=== PATIENT | female | born 1960 | race Caucasian/White ===

== ENCOUNTER 2019-07-01 19:20 | Emergency (ER) | payer OTHER ==
[2019-07-01 19:28] VITALS: BP 152/76; PULSE 64; TEMP 98; BMI 21.2
--- NOTE | 2019-07-01 20:50 | PDOC ---
Documentation entered by Darling Del Valle SCRIBE, acting as scribe for Be Villa MD. Be Villa MD: This documentation has been prepared by the Eligio ingram Aiswarya, SCRIBE, under my direction and personally reviewed by me in its entirety. I confirm that the documentation accurately reflects all work, treatment, procedures, and medical decision making performed by me. History of Present Illness - General Chief Complaint: Injury Stated Complaint: LT ANKLE PAIN Time Seen by Provider: 07/01/19 19:25 History Source: Patient Exam Limitations: No Limitations - History of Present Illness Initial Comments: 07/01/19 20:04 Assessment and plan: This is a 59-year-old female who twisted her ankle well ambulating. Patient comes in complaining of pain over the lateral ankle. Patient had x-ray was negative for any acute pathology of the ankle or the foot Patient discharged and had her own crutches and a walking boot so did not require any additional support. 07/01/19 20:12 The patient is a 76 year old female, with a significant PMH of depression, who presents to the emergency department for evaluation of left ankle injury that occurred today. The patient states she rolled her left ankle while walking down a hill. She endorses tenderness on palpation that is exacerbated with movement but able to bear weight. Patient denies hitting her head or LOC. Denies any numbness or tingling. Denies any other neurological deficit. PAST MEDICAL HISTORY: no significant history PAST SURGICAL HISTORY: no significant history FAMILY HISTORY: no pertinent history SOCIAL HISTORY: Pt lives with family and is employed. MEDICATIONS: reviewed ALLERGIES: As per nursing notes Adult ROS General: No fevers or chills, no weakness, no weight loss HEENT: No change in vision. No sore throat,. No ear pain CardioVascular: No chest pain or shortness of breath Respiratory:No cough, or wheezing. Gastrointestinal: no nausea, vomiting, diarrhea or constipation, No rectal bleeding Genitourinary: No dysuria, hematuria, or frequency Musculoskeletal: +left ankle injury. Neurologic: No headache, vertigo, dizziness or loss of consciousness Psychiatric: nor depression Skin: No rashes or easy bruising Endocrine: no increased thirst or abnormal weight change Allergic: no skin or latex allergy All other systems reviewed and normal Basic PE GENERAL: The patient is awake, alert, and fully oriented, in no acute distress. HEAD: Normal with no signs of trauma. EYES: Pupils equal, round and reactive to light, extraocular movements intact, sclera anicteric, conjunctiva clear. EXTREMITIES: +Left ankle tenderness and swelling on palpation to the lateral malleolus with tenderness, swelling and ecchymosis of the lateral aspect of the foot. Neurovascular intact. NEUROLOGICAL: Normal speech, normal gait. PSYCH: Normal mood, normal affect. SKIN: Warm, Dry, normal turgor, no rashes or lesions noted. Past History - Past Medical History Allergies/Adverse Reactions: Allergies Allergy/AdvReac Type Severity Reaction Status Date / Time Sulfa (Sulfonamide Allergy Verified 11/30/12 13:01 Antibiotics) [Sulfa(Sulfonamide Antibiotics)] Home Medications: Ambulatory Orders Estrogens,Esterified [Menest] 0.3 mg PO BID 11/30/12 Bupropion HCl [Bupropion Xl] 300 mg PO DAILY 06/18/18 Naproxen 500 mg PO BID PRN #14 tablet 06/19/18 COPD: No Psychiatric Problems: Yes - Suicide/Smoking/Psychosocial Hx Smoking Status: No Smoking History: Never smoked Number of Cigarettes Smoked Daily: 0 *Physical Exam - Vital Signs Last Vital Signs Temp Pulse Resp BP Pulse Ox 98 F 64 18 152/76 100 07/01/19 19:24 07/01/19 19:24 07/01/19 19:24 07/01/19 19:24 07/01/19 19:24 ED Treatment Course - RADIOLOGY Radiology Studies Ordered: Category Date Time Status ANKLE & FOOT-RIGHT* [RAD] Stat Radiology 07/01/19 19:40 Ordered *DC/Admit/Observation/Transfer Diagnosis at time of Disposition: Left ankle sprain Qualifiers: Encounter type: initial encounter Involved ligament of ankle: unspecified ligament Qualified Code(s): S93.402A - Sprain of unspecified ligament of left ankle, initial encounter - Discharge Dispostion Disposition: HOME Condition at time of disposition: Stable Decision to Admit order: No - Referrals Referrals: Liz Santana MD [Primary Care Provider] - - Patient Instructions Additional Instructions: Tylenol or Motrin as needed for pain. Wear the Onesimo wrap for support and use your boot or crutches as needed. Return to the emergency department immediately with ANY new, persistent or worsening symptoms. Continue any medications as previously prescribed by your physician. You should follow up with your primary doctor as soon as possible regarding today's emergency department visit. . Please make sure your doctor reviews the results of your emergency evaluation. Thank you for coming to the Emergency Department today for your care. It was a pleasure to see you today. Please note that your evaluation is INCOMPLETE until you follow-up with your doctor. - Post Discharge Activity
== END 2019-07-01 20:17 | disposition home or self-care (01) ==
LOC: FER 19:20
DX: S93.402A Sprain of unspecified ligament of left ankle, initial encounter (principal); X58.XXXA Exposure to other specified factors, initial encounter; Y93.89 Activity, other specified; Y92.89 Other specified places as the place of occurrence of the external cause; F99 Mental disorder, not otherwise specified
CPT/HCPCS: 73610-TC-RT-FY; 73630-TC-RT-FY; 99282-25